=== PATIENT | male | born 1945 | race Caucasian/White ===

== ENCOUNTER 2019-04-24 13:48 | Emergency (ER) | payer BC, MEDICARE ==
[2019-04-24] MEDS ORDERED: Sodium Chloride 0.9% 10 ML Syringe FLUSH PRN (13:52)
[2019-04-24] MEDS ORDERED: Furosemide 40 MG/4 ML VIAL IVPUSH ONE (13:53)
--- NOTE | 2019-04-24 14:50 | CR ---
Chest: Portable view of the chest was obtained. Comparison: Prior chest x-ray of 06/30/18. Heart size at the upper limits of normal. Lungs are clear with no acute parenchymal change. Previous sternotomy is noted. Bony structures are grossly intact. Impression: 1. Nothing acute is appreciated on portable chest x-ray. Diagnostic code #2
--- NOTE | 2019-04-24 16:32 | EDM.PDOC ---
ED HPI GENERAL MEDICAL PROBLEM - General Chief Complaint: Respiratory Problem Stated Complaint: [facility] Time Seen by Provider: 04/24/19 13:52 Source of Information: Reports: Patient, EMS History Limitations: Reports: No Limitations - History of Present Illness INITIAL COMMENTS - FREE TEXT/NARRATIVE: The patient presents by [facility] for respiratory distress. He says this started about 1 hour before arrival. He took 2 hits of his inhaler before EMS arrived. He was tachycardic and diaphoretic. He had no chest pain. He has a history of CHF. He was sent to [facility] in June of this year. He did not have an IL according to the patient. Today he has no abdominal pain , nausea or vomiting. He has no swelling in his legs. Onset: Sudden Duration: Hour(s): (1) Severity: Moderate Improves with: Reports: None Worsens with: Reports: None Associated Symptoms: Reports: Shortness of Breath. Denies: Chest Pain, Cough, Fever/Chills, Headaches, Nausea/Vomiting - Related Data Allergies Allergy/AdvReac Type Severity Reaction Status Date / Time Penicillins Allergy Nausea and Verified 04/24/19 13:58 Vomiting Home Meds: Home Meds Canagliflozin/Metformin HCl [Invokamet 150-1,000 mg Tablet] 2 tab PO DAILY 06/30 [History] Clopidogrel Bisulfate [Clopidogrel] 75 mg PO DAILY 06/30/18 [History] Colesevelam HCl 625 mg PO BID 06/30/18 [History] Exenatide Microspheres [Bydureon Pen] 2 mg SQ ASDIRECTED 06/30/18 [History] Metoprolol Tartrate 25 mg PO BID 06/30/18 [History] Ranitidine HCl [Ranitidine] 150 mg PO DAILY 06/30/18 [History] Rosuvastatin Calcium 40 mg PO DAILY 06/30/18 [History] Telmisartan 40 mg PO DAILY 06/30/18 [History] Telmisartan [Micardis] 40 mg PO DAILY 06/30/18 [History] amLODIPine [Norvasc] 2.5 mg PO DAILY 06/30/18 [History] predniSONE [Prednisone] 2 mg PO ASDIRECTED 06/30/18 [History] Furosemide [Lasix] 20 mg PO DAILY #7 tab 04/24/19 [Rx] Past Medical History HEENT History: Reports: Impaired Vision Other HEENT History: wears reading glasses Cardiovascular History: Reports: CAD, High Cholesterol, Hypertension, [place] Respiratory History: Reports: Sleep Apnea Gastrointestinal History: Reports: GERD Other Gastrointestinal History: hernia Musculoskeletal History: Reports: Arthritis Endocrine/Metabolic History: Reports: Obesity/BMI 30+ - Infectious Disease History Infectious Disease History: Reports: Chicken Pox, Measles, Mumps - Past Surgical History HEENT Surgical History: Reports: Oral Surgery, Tonsillectomy Cardiovascular Surgical History: Reports: Coronary Artery Bypass Musculoskeletal Surgical History: Reports: Arthroscopic Knee, Shoulder Surgery Social & Family History - Family History Family Medical History: Noncontributory - Tobacco Use Smoking Status *Q: Never Smoker Second Hand Smoke Exposure: No - Caffeine Use Caffeine Use: Reports: None Other Caffeine Use: rarely - Recreational Drug Use Recreational Drug Use: No - Living Situation & Occupation Living situation: Reports: , with Spouse Occupation: Retired ED ROS GENERAL - Review of Systems Review Of Systems: See Below Constitutional: Reports: No Symptoms HEENT: Reports: No Symptoms Respiratory: Reports: Shortness of Breath Cardiovascular: Reports: No Symptoms Endocrine: Reports: No Symptoms GI/Abdominal: Reports: No Symptoms : Reports: No Symptoms Musculoskeletal: Reports: No Symptoms Skin: Reports: No Symptoms Neurological: Reports: No Symptoms ED EXAM, GENERAL - Physical Exam Exam: See Below Exam Limited By: No Limitations General Appearance: Alert, No Apparent Distress Ears: Normal External Exam Nose: Normal Inspection Head: Atraumatic, Normocephalic Neck: Normal Inspection, Supple, Non-Tender Respiratory/Chest: Respiratory Distress (Mild), Rales Cardiovascular: Regular Rate, Rhythm, No Edema, No Murmur GI/Abdominal: Soft, Non-Tender, No Organomegaly, No Mass Back Exam: Normal Inspection Extremities: Normal Inspection EKG INTERPRETATION EKG Date: 04/24/19 Time: 13:56 Rhythm: NSR Rate (Beats/Min): 83 [place]: Normal P-Wave: Present QRS: RBBB ST-T: Normal QT: Normal EKG Interpretation Comments: PVCs and no changes from prior EKG Course - Vital Signs Last Recorded V/S: Last Vital Signs Temp 96.9 F 04/24/19 13:52 Pulse 86 04/24/19 13:52 Resp 25 H 04/24/19 13:52 BP 110/98 H 04/24/19 13:52 Pulse Ox 100 04/24/19 13:53 - Orders/Labs/Meds Orders: Active Orders 24 hr Category Date Time Status BIPAP Adult [RT BiPAP/CPAP] [RC] ASDIRECTED Care 04/24/19 13:53 Active Cardiac Monitoring [RC] . DIRECTED Care 04/24/19 13:52 Active EKG Documentation Completion [RC] STAT Care 04/24/19 13:52 Active Influenza Vaccine Charge [RC] .DISCHARGE Care 04/24/19 14:06 Active Oxygen Therapy [RC] PRN Care 04/24/19 13:52 Active Peripheral IV Care [RC] . DIRECTED Care 04/24/19 13:52 Active Sodium Chloride 0.9% [Saline Flush] Med 04/24/19 13:52 Active 10 ml FLUSH ASDIRECTED PRN Peripheral IV Insertion Adult [OM.PC] Stat Oth 04/24/19 13:52 Ordered Medication Orders Sodium Chloride (Saline Flush) 10 ml FLUSH ASDIRECTED PRN PRN Reason: Keep Vein Open Last Admin: 04/24/19 14:26 Dose: 10 ml Labs: Laboratory Tests 04/24/19 04/24/19 04/24/19 Range/Units 14:00 14:00 14:00 WBC 7.24 (4.23-9.07) K/mm3 RBC 4.68 (4.63-6.08) M/mm3 Hgb 13.5 L (13.7-17.5) gm/dl Hct 40.1 (40.1-51.0) % MCV 85.7 (79.0-92.2) fl MCH 28.8 (25.7-32.2) pg MCHC 33.7 (32.2-35.5) g/dl RDW Std Deviation 53.3 H (35.1-43.9) fL Plt Count 104 L (163-337) K/mm3 MPV TNP Neut % (Auto) 78.4 H (34.0-67.9) % Lymph % (Auto) 13.8 L (21.8-53.1) % [place] % (Auto) 6.4 (5.3-12.2) % Eos % (Auto) 1.0 (0.8-7.0) Baso % (Auto) 0.1 (0.1-1.2) % Neut # (Auto) 5.68 H (1.78-5.38) K/mm3 Lymph # (Auto) 1.00 L (1.32-3.57) K/mm3 [place] # (Auto) 0.46 (0.30-0.82) K/mm3 Eos # (Auto) 0.07 (0.04-0.54) K/mm3 Baso # (Auto) 0.01 (0.01-0.08) K/mm3 Manual Slide Review Abnormal smear Sodium 140 (136-145) mEq/L Potassium 3.9 (3.5-5.1) mEq/L Chloride 106 (98-107) mEq/L Carbon Dioxide 22 (21-32) mEq/L Anion Gap 15.9 H (5-15) BUN 17 (7-18) mg/dL Creatinine 1.3 (0.7-1.3) mg/dL Est Cr Clr Drug Dosing 55.49 mL/min Estimated GFR (MDRD) 54 (>60) mL/min BUN/Creatinine Ratio 13.1 L (14-18) Glucose 137 H (83-115) mg/dL Calcium 8.6 (8.5-10.1) mg/dL Total Bilirubin 1.0 (0.2-1.0) mg/dL AST 15 (15-37) U/L ALT 12 L (16-63) U/L Alkaline Phosphatase 68 (46-116) U/L Troponin I 0.130 H* (0.00-0.056) ng/mL NT-Pro-B Natriuret Pep 1092 H (0-450) pg/mL Total Protein 7.0 (6.4-8.2) g/dl Albumin 3.6 (3.4-5.0) g/dl Globulin 3.4 gm/dL Albumin/Globulin Ratio 1.1 (1-2) Meds: Medications Generic Name Dose Route Start Last Admin Trade Name Freq PRN Reason Stop Dose Admin Sodium Chloride 10 ml 04/24/19 13:52 04/24/19 14:26 Saline Flush FLUSH 10 ml ASDIRECTED PRN Administration Keep Vein Open Discontinued Medications Generic Name Dose Route Start Last Admin Trade Name Freq PRN Reason Stop Dose Admin Furosemide 80 mg 04/24/19 13:53 04/24/19 14:24 Lasix IVPUSH 04/24/19 13:54 80 mg NOW ONE Administration Influenza Virus Vaccine 1 each 04/24/19 14:06 Pharmacy To Dose - Influenza Vaccine IM 04/24/19 14:07 ONETIME ONE Influenza Virus Vaccine 180 mcg 04/24/19 14:15 04/24/19 16:02 Fluzone High-Dose 2019-20 Syringe IM 04/24/19 14:16 Not Given .ONCE ONE - Re-Assessments/Exams Free Text/Narrative Re-Assessment/Exam: 04/24/19 16:34 I ordered oxygen, BiPAP, lasix 80mg IV, labs, CXR and EKG. His EKG shows a NSR and RBBB with no change from prior. His CBC looks good. His troponin was elevated at 0.130. In the clinic it has been as high as 0.4 and 0.5. His CXR shows nothing acute. He is doing much better now. He does not want to stay. I will get him back on some lasix for a week and have him follow up with Dr Kahn. Departure - Departure Time of Disposition: 16:40 Disposition: Home, Self-Care 01 Condition: Good Clinical Impression: Congestive heart failure Qualifiers: Heart failure type: other Qualified Code(s): I50.9 - Heart failure, unspecified - Discharge Information *PRESCRIPTION DRUG MONITORING PROGRAM REVIEWED*: No *COPY OF PRESCRIPTION DRUG MONITORING REPORT IN PATIENT RUBEN: No Prescriptions: Furosemide [Lasix] 20 mg PO DAILY #7 tab Referrals: Jay Kahn MD [Primary Care Provider] - 1 Week Additional Instructions: Take the lasix daily for 1 week. Take your other medication as prescribed. Follow up with Dr Kahn within a week. Please return if you are worse. - My Orders Last 24 Hours: My Active Orders 04/24/19 13:52 Cardiac Monitoring [RC] . DIRECTED EKG Documentation Completion [RC] STAT Oxygen Therapy [RC] PRN Peripheral IV Care [RC] . DIRECTED Sodium Chloride 0.9% [Saline Flush] 10 ml FLUSH ASDIRECTED PRN Peripheral IV Insertion Adult [OM.PC] Stat 04/24/19 13:53 BIPAP Adult [RT BiPAP/CPAP] [RC] ASDIRECTED 04/24/19 14:06 Influenza Vaccine Charge [RC] .DISCHARGE - Assessment/Plan Last 24 Hours: My Active Orders 04/24/19 13:52 Cardiac Monitoring [RC] . DIRECTED EKG Documentation Completion [RC] STAT Oxygen Therapy [RC] PRN Peripheral IV Care [RC] . DIRECTED Sodium Chloride 0.9% [Saline Flush] 10 ml FLUSH ASDIRECTED PRN Peripheral IV Insertion Adult [OM.PC] Stat 04/24/19 13:53 BIPAP Adult [RT BiPAP/CPAP] [RC] ASDIRECTED 04/24/19 14:06 Influenza Vaccine Charge [RC] .DISCHARGE
== END 2019-04-24 17:00 | disposition home or self-care (01) ==
LOC: JD.ED 13:48
DX: I11.0 Hypertensive heart disease with heart failure (principal); I50.9 Heart failure, unspecified; I25.10 Atherosclerotic heart disease of native coronary artery without angina pectoris; E78.00 Pure hypercholesterolemia, unspecified; I25.2 Old myocardial infarction; E66.9 Obesity, unspecified; Z68.34 Body mass index [BMI] 34.0-34.9, adult; Z88.0 Allergy status to penicillin; Z95.1 Presence of aortocoronary bypass graft; Z79.02 Long term (current) use of antithrombotics/antiplatelets; Z79.899 Other long term (current) drug therapy
CPT/HCPCS: 36415; 71045; 80053; 83880; 84484; 85025; 93005; 96374; 99285; J1940; 93010; 99284

== ENCOUNTER 2020-03-24 02:57 | Emergency (ER) | payer MEDICARE, OTHER ==
--- NOTE | 2020-03-24 03:27 | EDM.PDOC ---
ED HPI GENERAL MEDICAL PROBLEM - General Chief Complaint: General Stated Complaint: [facility] Time Seen by Provider: 03/24/20 03:07 Source of Information: Reports: Patient History Limitations: Reports: No Limitations - History of Present Illness INITIAL COMMENTS - FREE TEXT/NARRATIVE: Mr. Katz is a very pleasant 75-year-old gentleman with a past medical history significant for coronary artery disease, status post an NJ in 2002, with a 5 vessel CABG at that time, and obstructive sleep apnea, ordinarily on nightly CPAP, who is now brought to the ED by EMS after he developed diaphoresis, weakness, nausea, and dyspnea around 01:30. He states that he was watching television at the time, but he likely fell asleep in front of the television and was startled awake. He denies associated chest pain or palpitations. The patient states that he had a similar episode about 1 to 2 weeks ago. He subsequently saw his PCP, but does not recall what tests or treatments, if any, were given. Here in the ED, the patient's initial BP is found to be depressed at 101/46, otherwise, he is hemodynamically stable, afebrile, saturating 92% on room air. Other than this morning's symptoms, the patient denies having a recent fever, chills, sore throat, ear pain, nasal or sinus congestion, cough, chest pain, palpitations, vomiting, constipation, diarrhea, abdominal pain, urinary symptoms, recent weight gain or weight loss, recent bloody bowel movements or black bowel movements, recent joint aches, headaches, or rashes. The patient's PCP is Dr. Jay Cuenca. - Related Data Allergies Allergy/AdvReac Type Severity Reaction Status Date / Time Penicillins AdvReac Nausea and Verified 03/24/20 03:02 Vomiting Home Meds: Home Meds Canagliflozin/Metformin HCl [Invokamet 150-1,000 mg Tablet] 2 tab PO DAILY 06/30/18 [History] Clopidogrel Bisulfate [Clopidogrel] 75 mg PO DAILY 06/30/18 [History] Colesevelam HCl 625 mg PO BID 06/30/18 [History] Exenatide Microspheres [Bydureon Pen] 2 mg SQ ASDIRECTED 06/30/18 [History] Metoprolol Tartrate 25 mg PO BID 06/30/18 [History] Ranitidine HCl [Ranitidine] 150 mg PO DAILY 06/30/18 [History] Rosuvastatin Calcium 40 mg PO DAILY 06/30/18 [History] Telmisartan 40 mg PO DAILY 06/30/18 [History] Telmisartan [Micardis] 40 mg PO DAILY 06/30/18 [History] amLODIPine [Norvasc] 2.5 mg PO DAILY 06/30/18 [History] predniSONE [Prednisone] 2 mg PO ASDIRECTED 06/30/18 [History] Furosemide [Lasix] 20 mg PO DAILY #7 tab 04/24/19 [Rx] Past Medical History HEENT History: Reports: Impaired Vision (wears glasses) Cardiovascular History: Reports: CAD, High Cholesterol, Hypertension, [place] (2002) Respiratory History: Reports: Sleep Apnea (nightly CPAP) Gastrointestinal History: Reports: GERD Musculoskeletal History: Reports: Arthritis Endocrine/Metabolic History: Reports: Obesity/BMI 30+ - Infectious Disease History Infectious Disease History: Reports: Chicken Pox, Measles, Mumps - Past Surgical History HEENT Surgical History: Reports: Oral Surgery (wisdom teeth extraction), Tonsillectomy Cardiovascular Surgical History: Reports: AICD (December 2019), Coronary Artery Bypass (x 5 vessel, 2002) Musculoskeletal Surgical History: Reports: Arthroscopic Knee (left), Shoulder Surgery (right, open) Social & Family History - Family History Family Medical History: Noncontributory - Tobacco Use Smoking Status *Q: Never Smoker - Caffeine Use Caffeine Use: Reports: None Other Caffeine Use: rarely - Alcohol Use Alcohol Use History: Yes Alcohol Use Frequency: Daily (1 per day) - Recreational Drug Use Recreational Drug Use: No - Living Situation & Occupation Living situation: Reports: , with Spouse Occupation: Retired ED ROS GENERAL - Review of Systems Review Of Systems: Comprehensive ROS is negative, except as noted in HPI. ED EXAM, GENERAL - Physical Exam Exam: See Below Exam Limited By: No Limitations General Appearance: Alert, WD/WN, No Apparent Distress Eye Exam: Bilateral Eye: EOMI, Normal Inspection Ears: Normal External Exam, Hearing Grossly Normal Nose: Normal Inspection Throat/Mouth: Normal Inspection, Normal Voice, No Airway Compromise, Other (Wearing a surgical mask) Head: Atraumatic, Normocephalic Neck: Normal Inspection, Full Range of Motion Respiratory/Chest: No Respiratory Distress, No Accessory Muscle Use, Decreased Breath Sounds. No: Crackles, Rhonchi, Wheezing, Stridor, Prolonged Expiration Cardiovascular: Normal Peripheral Pulses, Regular Rate, Rhythm, No Gallop, No JVD, No Murmur, No Rub, Other (Distant heart sounds) Peripheral Pulses: 1+: Radial (L), Radial (R) GI/Abdominal: Normal Bowel Sounds, Soft, Non-Tender, No Organomegaly, No Distention, No Abnormal Bruit, No Mass (Male) Exam: Deferred Rectal (Males) Exam: Deferred Back Exam: Normal Inspection, Full Range of Motion, NT Extremities: Normal Range of Motion, Other (Bilateral leg hyperpigmentation consistent with chronic venous stasis changes, however, no significant edema at this time) Neurological: Alert, Oriented, Normal Cognition, No Motor/Sensory Deficits Psychiatric: Normal Affect Skin Exam: Warm, Dry, Intact, Normal Color, No Rash EKG INTERPRETATION EKG Date: 03/24/20 Time: 03:01 Rhythm: Other (A-V paced with 2 PVCs) Rate (Beats/Min): 89 Comparison: Change From Previous EKG (Was in [facility] on 04/24/2019) Course - Vital Signs Last Recorded V/S: Last Vital Signs Temp 36.2 C 03/24/20 02:58 Pulse 81 03/24/20 02:58 Resp 18 03/24/20 02:58 BP 101/46 L 03/24/20 02:58 Pulse Ox 92 L 03/24/20 02:58 Orthostatic Blood Pressure [ 94/63 Standing] Orthostatic Blood Pressure [ 97/63 Sitting] Orthostatic Blood Pressure [ 92/68 Supine] - Orders/Labs/Meds Orders: Active Orders 24 hr Category Date Time Status EKG 12 Lead [EKG Documentation Completion] [RC] STAT Care 03/24/20 03:06 Active Orthostatic Vital Signs [RC] STAT Care 03/24/20 03:17 Active CORONAVIRUS COVID-19 PCR PHL Stat Lab 03/24/20 03:40 Received Heparin Sodium/D5W [Heparin 25,000 Units in D5W 500 ML] Med 03/24/20 06:15 Active 25,000 units in 500 ml IV TITRATE Simvastatin [Zocor] Med 03/24/20 06:56 Active 40 mg PO BEDTIME Medication Orders Heparin Sodium/Dextrose (Heparin 25,000 Units In D5w 500 Ml) 25,000 units in 500 mls @ 20 mls/hr IV TITRATE CAROL; Protocol Last Admin: 03/24/20 06:38 Dose: 1,000 units/hr, 20 mls/hr Documented by: BOAZ Cosigned by: MAGGI Simvastatin (Zocor) 40 mg PO BEDTIME CAROL Last Admin: 03/24/20 06:57 Dose: 40 mg Documented by: BOAZ Labs: Laboratory Tests 03/24/20 03/24/20 03/24/20 Range/Units 03:05 03:05 03:05 WBC 8.48 (4.23-9.07) K/mm3 RBC 4.67 (4.63-6.08) M/mm3 Hgb 13.3 L (13.7-17.5) gm/dl Hct 40.5 (40.1-51.0) % MCV 86.7 (79.0-92.2) fl MCH 28.5 (25.7-32.2) pg MCHC 32.8 (32.2-35.5) g/dl RDW Std Deviation 55.9 H (35.1-43.9) fL Plt Count 119 L (163-337) K/mm3 MPV Not Reportable Neutrophils % (Manual) 67 H (40-60) % Band Neutrophils % 0 (0-10) % Lymphocytes % (Manual) 20 (20-40) % Atypical Lymphs % 0 % Monocytes % (Manual) 11 H (2-10) % Eosinophils % (Manual) 2 (0.8-7.0) % Basophils % (Manual) 0 L (0.2-1.2) Platelet Estimate Decreased Plt Morphology Comment Normal Hypochromasia 1+ slight Poikilocytosis 2+ moderate Anisocytosis 2+ moderate Ovalocytes 2+ moderate Acanthocytes (Spur) 1+ slight RBC Morph Comment Abnormal D-Dimer, Quantitative 1.52 H (0.19-0.50) mg/L Sodium 139 (136-145) mEq/L Potassium 3.4 L (3.5-5.1) mEq/L Chloride 102 (98-107) mEq/L Carbon Dioxide 27 (21-32) mEq/L Anion Gap 13.4 (5-15) BUN 19 H (7-18) mg/dL Creatinine 1.5 H (0.7-1.3) mg/dL Est Cr Clr Drug Dosing 48.71 mL/min Estimated GFR (MDRD) 46 (>60) mL/min BUN/Creatinine Ratio 12.7 L (14-18) Glucose 164 H (83-115) mg/dL Calcium 9.0 (8.5-10.1) mg/dL Magnesium 1.9 (1.8-2.4) mg/dl Total Bilirubin 0.6 (0.2-1.0) mg/dL AST 18 (15-37) U/L ALT 18 (16-63) U/L Alkaline Phosphatase 75 (46-116) U/L Troponin I 0.165 H* (0.00-0.056) ng/mL NT-Pro-B Natriuret Pep (0-450) pg/mL Total Protein 7.3 (6.4-8.2) g/dl Albumin 3.7 (3.4-5.0) g/dl Globulin 3.6 gm/dL Albumin/Globulin Ratio 1.0 (1-2) Urine Color (Yellow) Urine Appearance (Clear) Urine pH (5.0-8.0) Ur Specific [place] (1.005-1.030) Urine Protein (Negative) Urine Glucose (UA) (Negative) Urine Ketones (Negative) Urine Occult Blood (Negative) Urine Nitrite (Negative) Urine Bilirubin (Negative) Urine Urobilinogen (0.2-1.0) Ur Leukocyte Esterase (Negative) U Hyaline Cast (Auto) (0-5) /lpf Urine RBC (0-5) /hpf Urine WBC (0-5) /hpf Ur Squamous Epith Cells (0-5) /hpf Amorphous Sediment (NOT SEEN) /hpf Urine Bacteria (FEW) /hpf Urine Mucus (FEW) /hpf 03/24/20 03/24/20 03/24/20 Range/Units 03:05 05:05 05:38 WBC (4.23-9.07) K/mm3 RBC (4.63-6.08) M/mm3 Hgb (13.7-17.5) gm/dl Hct (40.1-51.0) % MCV (79.0-92.2) fl MCH (25.7-32.2) pg MCHC (32.2-35.5) g/dl RDW Std Deviation (35.1-43.9) fL Plt Count (163-337) K/mm3 MPV Neutrophils % (Manual) (40-60) % Band Neutrophils % (0-10) % Lymphocytes % (Manual) (20-40) % Atypical Lymphs % % Monocytes % (Manual) (2-10) % Eosinophils % (Manual) (0.8-7.0) % Basophils % (Manual) (0.2-1.2) Platelet Estimate Plt Morphology Comment Hypochromasia Poikilocytosis Anisocytosis Ovalocytes Acanthocytes (Spur) RBC Morph Comment D-Dimer, Quantitative (0.19-0.50) mg/L Sodium (136-145) mEq/L Potassium (3.5-5.1) mEq/L Chloride (98-107) mEq/L Carbon Dioxide (21-32) mEq/L Anion Gap (5-15) BUN (7-18) mg/dL Creatinine (0.7-1.3) mg/dL Est Cr Clr Drug Dosing mL/min Estimated GFR (MDRD) (>60) mL/min BUN/Creatinine Ratio (14-18) Glucose (83-115) mg/dL Calcium (8.5-10.1) mg/dL Magnesium (1.8-2.4) mg/dl Total Bilirubin (0.2-1.0) mg/dL AST (15-37) U/L ALT (16-63) U/L Alkaline Phosphatase (46-116) U/L Troponin I 0.617 H* (0.00-0.056) ng/mL NT-Pro-B Natriuret Pep 949 H (0-450) pg/mL Total Protein (6.4-8.2) g/dl Albumin (3.4-5.0) g/dl Globulin gm/dL Albumin/Globulin Ratio (1-2) Urine Color Yellow (Yellow) Urine Appearance Clear (Clear) Urine pH 5.5 (5.0-8.0) Ur Specific [place] > or = 1.030 (1.005-1.030) Urine Protein 2+ H (Negative) Urine Glucose (UA) 2+ H (Negative) Urine Ketones Negative (Negative) Urine Occult Blood Negative (Negative) Urine Nitrite Negative (Negative) Urine Bilirubin Negative (Negative) Urine Urobilinogen 0.2 (0.2-1.0) Ur Leukocyte Esterase Negative (Negative) U Hyaline Cast (Auto) 0-5 (0-5) /lpf Urine RBC Not seen (0-5) /hpf Urine WBC 0-5 (0-5) /hpf Ur Squamous Epith Cells 0-5 (0-5) /hpf Amorphous Sediment Few H (NOT SEEN) /hpf Urine Bacteria Rare (FEW) /hpf Urine Mucus Not seen (FEW) /hpf Meds: Medications Generic Name Dose Route Start Last Admin Trade Name Freq PRN Reason Stop Dose Admin Heparin Sodium/Dextrose 25,000 units in 500 mls @ 20 mls/hr 03/24/20 06:15 03/24/20 06:38 Heparin 25,000 Units In D5w 500 Ml IV 1,000 units/hr TITRATE CAROL 20 mls/hr Administration Protocol 1,000 UNITS/HR Simvastatin 40 mg 03/24/20 06:56 03/24/20 06:57 Zocor PO 40 mg BEDTIME CAROL Administration Discontinued Medications Generic Name Dose Route Start Last Admin Trade Name Freq PRN Reason Stop Dose Admin Aspirin 324 mg 03/24/20 04:18 03/24/20 04:24 Aspirin PO 03/24/20 04:19 324 mg ONETIME STA Administration Heparin Sodium (Porcine) 4,000 units 03/24/20 06:15 03/24/20 06:37 Heparin Sodium IVPUSH 03/24/20 06:16 4,000 units .BOLUS STA Administration Simvastatin 40 mg 03/24/20 21:00 Zocor PO BEDTIME CAROL Simvastatin 40 mg 03/24/20 06:44 03/24/20 06:57 Zocor PO 03/24/20 06:45 Not Given ONETIME ONE - Re-Assessments/Exams Free Text/Narrative Re-Assessment/Exam: 03/24/20 03:19 As above, the patient developed diaphoresis, weakness, nausea, and some dyspnea around 01:30 this morning, when he was woken from sleep while watching television. He states that he may have been startled awake. No associated chest pain or palpitations. He states that he had a similar symptoms about 1 to 2 weeks ago, saw Dr. Cuenca, but does not recall what tests or treatments were given, if any. Here in the ED, the patient is found to be mildly hypotensive, afebrile, saturating 92% on room air. His physical exam findings distant heart and lung sounds, and a poor pulse, but his extremities are warm to palpation with good color. The patient is in no distress whatsoever. An ECG, obtained at triage, demonstrates AV pacing. I have ordered a work-up that includes orthostatics, blood work, a urinalysis, a chest x-ray, and a swab for the SARS-CoV-2 virus. 03/24/20 03:27 Notified by Rupa CABRALES that the patient is not allowing a nasal swab to test for the SARS-CoV-2 virus, telling her that he does not COVID-19. Both the rapid Abbot test and 1 hour Cepheid test are collected by nasal swab, therefore we will send a ND Raad test, which is collected oropharyngeally. 03/24/20 03:45 The patient is not orthostatic. 03/24/20 04:11 Two-view chest radiograph reviewed. The cardiac silhouette is at the upper limits of normal. No pulmonary vascular congestion. No pleural effusions. No focal infiltrate. No pneumothorax. There is hyperinflation with bilateral diaphragmatic flattening, consistent with COPD. A left-sided 2 chamber ICD is noted. Wires noted. Formal read per the Radiologist pending. 03/24/20 04:19 The patient's CMP is remarkable for a potassium slightly depressed at 3.4, and a BUN/Cr elevated at 19/1.5, with a blood glucose elevated at 164, and the remainder of his CMP being unremarkable. His magnesium level is within normal limits at 1.9. His troponin is elevated at 0.165. His BNP is mildly elevated at 949. His D-dimer is elevated at 1.52. The patient's CBC has not yet resulted. A urine sample has not yet been collected. Reviewing prior labs, I see that the patient's BUN/Cr were 17/1.3 on 04/24/2019. His troponin was 0.130 on 04/24/2019, 0.348 on 06/30/2018, 0.43 on 06/13/2018, and 0.542 on 06/12/2018. His D-dimer was 0.90 on 06/30/2018 and 0.93 on 06/12/2018. This indicates that today's troponin is mildly higher than on 04/24/2019, when his renal function was not as impaired. This indicates possible recent cardiac injury. I have therefore ordered 324 mg of chewable aspirin, and will repeat a troponin at 05:30, 4 hours after the onset of his symptoms, to see if it is trending. 03/24/20 05:30 The patient's urinalysis is unremarkable. 03/24/20 06:17 The patient's repeat troponin has returned significantly elevated at 0.617. This indicates an acute cardiac injury. I have therefore ordered a heparin bolus + drip. 03/24/20 06:19 The above was discussed with the patient. I recommended transfer to [facility]. He prefers [facility]. 03/24/20 06:38 Case discussed with Demetrice at [facility] at 06:19. Case then discussed with Dr. Pearl, Veterinarian Assistant at [facility], at 06:30. He requested that we transport the patient to the ED, where he will then see the patient. He requested that I add 40 mg oral simvastatin to the patient's current regimen. Case then discussed with Dr. Ramsay, Emergency Physician at [facility], at 06:35. He accepted the patient for transfer to their ED. the patient will be transported by ground ambulance. 03/24/20 06:49 I have pushed the chest x-ray images to [facility]. Departure - Departure Time of Disposition: 06:39 Disposition: DC/Tfer to Acute Hospital 02 Condition: Fair Clinical Impression: Acute [place], Renal insufficiency, Elevated d-dimer - Discharge Information *PRESCRIPTION DRUG MONITORING PROGRAM REVIEWED*: Not Applicable *COPY OF PRESCRIPTION DRUG MONITORING REPORT IN PATIENT RUBEN: Not Applicable Referrals: Jay Sexton MD [Primary Care Provider] - Forms: ED Department Discharge Sepsis Event Note (ED) - Evaluation Sepsis Screening Result: No Definite Risk - Focused Exam Vital Signs: Vital Signs Temp Pulse Resp BP Pulse Ox 03/24/20 02:58 36.2 C 81 18 101/46 L 92 L - My Orders Last 24 Hours: My Active Orders 03/24/20 03:06 EKG 12 Lead [EKG Documentation Completion] [RC] STAT 03/24/20 03:17 Orthostatic Vital Signs [RC] STAT 03/24/20 03:40 CORONAVIRUS COVID-19 PCR PHL Stat 03/24/20 06:15 Heparin Sodium/D5W [Heparin 25,000 Units in D5W 500 ML] 25,000 units in 500 ml IV TITRATE 03/24/20 06:56 Simvastatin [Zocor] 40 mg PO BEDTIME - Assessment/Plan Last 24 Hours: My Active Orders 03/24/20 03:06 EKG 12 Lead [EKG Documentation Completion] [RC] STAT 03/24/20 03:17 Orthostatic Vital Signs [RC] STAT 03/24/20 03:40 CORONAVIRUS COVID-19 PCR PHL Stat 03/24/20 06:15 Heparin Sodium/D5W [Heparin 25,000 Units in D5W 500 ML] 25,000 units in 500 ml IV TITRATE 03/24/20 06:56 Simvastatin [Zocor] 40 mg PO BEDTIME
[2020-03-24] MEDS ORDERED: Aspirin 81 MG Tab.Chew PO STA (04:18)
[2020-03-24] MEDS ORDERED: Heparin Sodium 5,000 Units/ML Vial IVPUSH STA (06:15)
[2020-03-24] MEDS ORDERED: Heparin Sodium/D5W 25,000 UNITS/500 ML BAG IV SCH (06:15)
[2020-03-24] MEDS ORDERED: Simvastatin 10 MG Tab PO ONE (06:44)
[2020-03-24] MEDS ORDERED: Simvastatin 40 MG Tab PO SCH ×2 (06:56→21:00)
--- NOTE | 2020-03-24 06:56 | CR ---
Chest: 2 views of the chest were obtained. Comparison: Prior chest x-ray of 06/30/18 and 04/24/19. Heart size and mediastinum are within normal limits. Lungs show no acute parenchymal change. Previous sternotomy is noted. AICD is present. Epicardial wire is also noted. Bony structures appear within normal limits for the patient's age. Impression: 1. Findings as noted above. 2. Nothing acute is appreciated. Diagnostic code #2 This report was dictated in MDT
== END 2020-03-24 07:21 ==
LOC: JD.ED 02:57
DX: I21.9 Acute myocardial infarction, unspecified (principal); N28.9 Disorder of kidney and ureter, unspecified; R79.1 Abnormal coagulation profile; I25.10 Atherosclerotic heart disease of native coronary artery without angina pectoris; E78.00 Pure hypercholesterolemia, unspecified; I10 Essential (primary) hypertension; K21.9 Gastro-esophageal reflux disease without esophagitis; E66.9 Obesity, unspecified; Z68.32 Body mass index [BMI] 32.0-32.9, adult; Z95.1 Presence of aortocoronary bypass graft; Z88.0 Allergy status to penicillin; Z79.02 Long term (current) use of antithrombotics/antiplatelets; Z79.899 Other long term (current) drug therapy; Z20.828 Contact with and (suspected) exposure to other viral communicable diseases
CPT/HCPCS: 36415; 71046; 80053; 81001; 83735; 83880; 84484; 85007; 85027; 85379; 93005; 96365; 99285; A9270; J1644; U0002; 93010

== ENCOUNTER 2020-11-12 00:44 | Emergency (ER) | payer MEDICARE, OTHER ==
[2020-11-12] MEDS ORDERED: Sodium Chloride 0.9% 10 ML Syringe FLUSH PRN (01:14)
[2020-11-12] MEDS ORDERED: Nitroglycerin 0.4 MG Tab.SL SL ONE (01:22)
--- NOTE | 2020-11-12 01:25 | EDM.PDOC ---
ED HPI GENERAL MEDICAL PROBLEM - General Chief Complaint: General Stated Complaint: [facility] Time Seen by Provider: 11/12/20 00:49 Source of Information: Reports: Patient, EMS History Limitations: Reports: Other (Limited/difficult historian) - History of Present Illness INITIAL COMMENTS - FREE TEXT/NARRATIVE: EMS was called to the patient's residence because he was unable to get up States that he tripped 1 week ago while moving something into his shed with a trailer Sustained injury to the right knee Since then he has had difficulty getting up to his feet, and was unable to do so tonight While trying to get up tonight, he developed chest pain Chest pain was initially rated 5/10, currently rated 3/10 Since arrival to ED, has also developed some nausea Complains of feeling cold for the past 3 days Endorses some abdominal distention States he last voided earlier "today", though uncertain when EMS reports patient was incontinent of urine at scene Patient's arrived subsequently at the bedside She states that he has been eating and drinking okay, he had a hamburger for lunch and has been drinking Sprite She reports that he was seen on 11/08/2020 at [facility] in [place] and had radiographs of the right knee which were evidently unremarkable He apparently became unresponsive for 5-10 seconds while trying to get up from the chair this evening Incontinence of urine occurred during that incident She wonders whether his defibrillator may have discharged, as he apparently awoke suddenly 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 Right Knee Pain Score (Numeric/FACES): 10 - Related Data Allergies Allergy/AdvReac Type Severity Reaction Status Date / Time Penicillins AdvReac Severe Nausea and Verified 11/12/20 00:56 Vomiting Home Meds: Home Meds Clopidogrel Bisulfate [Clopidogrel] 75 mg PO DAILY 06/30/18 [History] Rosuvastatin Calcium 40 mg PO DAILY 06/30/18 [History] predniSONE [Prednisone] 1 mg PO ASDIRECTED 06/30/18 [History] Aspirin 81 mg PO DAILY 11/12/20 [History] Canagliflozin/Metformin HCl [Invokamet 150-500 mg Tablet] 1 each PO DAILY 11/12/20 [History] [place] 450 mg PO DAILY 11/12/20 [History] Cholecalciferol (Vitamin D3) [Vitamin D3] 125 mcg PO DAILY 11/12/20 [History] Cyclobenzaprine [Flexeril] 10 mg PO BEDTIME 11/12/20 [History] Exenatide Microspheres [Bydureon Bcise] 2 mg SQ WEEKLY 11/12/20 [History] Furosemide [Lasix] 20 mg PO ASDIRECTED 11/12/20 [History] Hydrocodone/Acetaminophen [Hydrocodone-Acetamin 5-325 mg] 2 tab PO DAILY PRN 11/12/20 [History] Metoprolol Succinate 50 mg PO DAILY 11/12/20 [History] Multivitamin 1 each PO DAILY 11/12/20 [History] Sacubitril/Valsartan [Entresto 49 mg-51 mg Tablet] 1 each PO BID 11/12/20 [History] Past Medical History HEENT History: Reports: Impaired Vision Other HEENT History: wears reading glasses Cardiovascular History: Reports: CAD, Heart Failure, High Cholesterol, Hypertension, [place] Respiratory History: Reports: Sleep Apnea Gastrointestinal History: Reports: GERD Other Gastrointestinal History: hernia Musculoskeletal History: Reports: Arthritis Endocrine/Metabolic History: Reports: Diabetes, Type II, Obesity/BMI 30+ - Infectious Disease History Infectious Disease History: Reports: Chicken Pox, Measles, Mumps - Past Surgical History HEENT Surgical History: Reports: Oral Surgery, Tonsillectomy Cardiovascular Surgical History: Reports: AICD, Coronary Artery Bypass Musculoskeletal Surgical History: Reports: Arthroscopic Knee, Shoulder Surgery Other Musculoskeletal Surgeries/Procedures:: R) rotator cuff repair Social & Family History - Family History Family Medical History: No Pertinent Family History - Tobacco Use Tobacco Use Status *Q: Never Tobacco User - Caffeine Use Caffeine Use: Reports: None Other Caffeine Use: rarely - Recreational Drug Use Recreational Drug Use: No - Living Situation & Occupation Living situation: Reports: , with Spouse Occupation: Retired ED ROS GENERAL - Review of Systems Review Of Systems: See Below Free Text/Narrative/Comment: Constitutional - no fever; generalized weakness Eyes - no eye pain; no visual disturbance ENT - no rhinorrhea; no congestion; no epistaxis Cardiovascular - chest pain; syncope Respiratory - shortness of breath, unchanged from chronic; no cough Gastrointestinal - abdominal distention; nausea; no vomiting; no diarrhea Genitourinary - no dysuria; urinary incontinence Musculoskeletal - no neck pain; no back pain; right knee pain Neurological - no headache; no speech disturbance; no weakness Skin - no laceration ED EXAM, GENERAL - Physical Exam Exam: See Below Free Text/Narrative:: Constitutional - awake; alert; mild distress due to pain; lying quietly in supine position with eyes closed; mild ketone odor present Head - no facial swelling or weakness Eyes - extra ocular motion intact; conjunctiva normal; pupils equal and reactive to light ENT - no nasal deformity; no epistaxis; normal phonation; mucus membranes dry; Neck - no swelling Respiratory - normal respiratory effort; no crackles or wheezing; no stridor Cardiovascular - regular rhythm; tachycardic; S1; S2; grade 1/6 systolic murmur GI/Abdomen - normal bowel sounds; soft; mild distention; no tenderness/rebound/guarding; no mass Musculoskeletal - grossly intact; mild to moderate edema both feet and ankles; mild, diffuse swelling throughout right knee with effusion; no gross deformity Skin - warm; dry Neurologic - speech intact but weak/quiet; generalized weakness, unable to hold onto bedrails in upright seated position Psychiatric - blunted mood and affect; memory limited; attention normal #1 Interpretation EKG Date: 11/12/20 Time: 00:51 Rhythm: Other (Undetermined rhythm, ventricular paced complexes, PVCs) Rate (Beats/Min): 118 [place]: LAD-Left [place] Deviation QRS: Wide ST-T: Other (Nonspecific ST-T wave abnormality without Sgarbossa criteria) Comparison: Change From Previous EKG (When compared with 03/24/2020, overall morphology is similar, tachycardia is now present) Course - Vital Signs Text/Narrative:: . Considered etiologies included: Weakness, dehydration, metabolic derangement, chest pain, ACS, knee pain, fracture, strain, contusion; urinary retention, abdominal distention, nausea, ileus Symptoms and examination were discussed Empiric treatment was provided with sublingual nitroglycerin for chest pain Morphine was given for knee pain Ondansetron was given for nausea Investigations were initiated At reevaluation he appeared more comfortable, lying semirecumbent with eyes open, holding hands with He reported resolution of chest pain symptoms In consideration of his acute, progressive functional impairment, he was advised that discharge home was unlikely In further consideration of history as provided by his regarding syncope w ith incontinence, they were further advised that transfer might be necessary Review of records showed cardiology outpatient encounter 10/16/2020, which summarized cardiac history: 5 vessel CABG 12/2002 Catheterization 06/2018 showed: -occluded paimiut LAD, circumflex -Patent graft to 2 OM branches with approximately 80% stenosis to lower limb -All other grafts occluded -RCA 70% ostial stenosis, diffuse disease in RPDA, RPL Chronic systolic CHF Ischemic cardiomyopathy, LVEF 30-35% Biventricular ICD 12/2019 AICD interrogation confirming episode of VT/VF 03/24/2020, terminated with shock (presented with chest pressure, shortness of breath, syncope, incontinence) Results were reviewed and discussed further with patient and They were agreeable with transfer to [place] for further care Case was discussed with hospitalist at [facility], who was agreeable to transfer Patient was accepted for arrival to ED (Dr. Ramsay) pending bed assignment Arrangements were initiated for ambulance transport Patient received additional analgesic treatment with morphine prior to ED departure Last Recorded V/S: Last Vital Signs Temp 36.8 C 11/12/20 03:34 Pulse 118 H 11/12/20 00:51 Resp 24 H 11/12/20 00:51 BP 136/78 11/12/20 00:51 Pulse Ox 90 L 11/12/20 00:51 - Orders/Labs/Meds Labs: Laboratory Tests 11/12/20 11/12/20 11/12/20 Range/Units 01:29 01:29 01:29 WBC 17.54 H (4.23-9.07) K/mm3 RBC 4.55 L (4.63-6.08) M/mm3 Hgb 13.2 L D (13.7-17.5) gm/dl Hct 39.9 L (40.1-51.0) % MCV 87.7 (79.0-92.2) fl MCH 29.0 (25.7-32.2) pg MCHC 33.1 (32.2-35.5) g/dl RDW Std Deviation 55.6 H (35.1-43.9) fL Plt Count 106 L (163-337) K/mm3 MPV TNP Neut % (Auto) 83.8 H (34.0-67.9) % Lymph % (Auto) 5.9 L (21.8-53.1) % Miner % (Auto) 9.8 (5.3-12.2) % Eos % (Auto) 0 L (0.8-7.0) Baso % (Auto) 0.1 (0.1-1.2) % Neut # (Auto) 14.71 H (1.78-5.38) K/mm3 Lymph # (Auto) 1.03 L (1.32-3.57) K/mm3 Miner # (Auto) 1.72 H (0.30-0.82) K/mm3 Eos # (Auto) 0.00 L (0.04-0.54) K/mm3 Baso # (Auto) 0.01 (0.01-0.08) K/mm3 Manual Slide Review Abnormal smear PT 12.3 H (9.7-12.0) SECONDS INR 1.15 APTT 25.6 (21.7-31.4) SECONDS Sodium 138 (136-145) mEq/L Potassium 4.3 (3.5-5.1) mEq/L Chloride 100 (98-107) mEq/L Carbon Dioxide 21 (21-32) mEq/L Anion Gap 21.3 H (5-15) BUN 30 H (7-18) mg/dL Creatinine 1.6 H (0.7-1.3) mg/dL Est Cr Clr Drug Dosing 45.67 mL/min Estimated GFR (MDRD) 42 (>60) mL/min BUN/Creatinine Ratio 18.8 H (14-18) Glucose 220 H (83-115) mg/dL Calcium 9.7 (8.5-10.1) mg/dL Magnesium 2.0 (1.8-2.4) mg/dl Total Bilirubin 1.2 H (0.2-1.0) mg/dL AST 29 (15-37) U/L ALT 16 (16-63) U/L Alkaline Phosphatase 101 (46-116) U/L Troponin I 0.473 H* (0.00-0.056) ng/mL NT-Pro-B Natriuret Pep (0-450) pg/mL Total Protein 7.9 (6.4-8.2) g/dl Albumin 2.9 L (3.4-5.0) g/dl Globulin 5.0 gm/dL Albumin/Globulin Ratio 0.6 L (1-2) Urine Color (Yellow) Urine Appearance (Clear) Urine pH (5.0-8.0) Ur Specific [place] (1.005-1.030) Urine Protein (Negative) Urine Glucose (UA) (Negative) Urine Ketones (Negative) Urine Occult Blood (Negative) Urine Nitrite (Negative) Urine Bilirubin (Negative) Urine Urobilinogen (0.2-1.0) Ur Leukocyte Esterase (Negative) Urine RBC (0-5) /hpf Urine WBC (0-5) /hpf Ur Squamous Epith Cells (0-5) /hpf Amorphous Sediment (NOT SEEN) /hpf Urine Bacteria (FEW) /hpf Fine Granular Casts (0-5) /lpf Urine Mucus (FEW) /hpf SARS-CoV-2 RNA ([place]) (NEGATIVE) 11/12/20 11/12/20 11/12/20 Range/Units 01:29 01:34 03:29 WBC (4.23-9.07) K/mm3 RBC (4.63-6.08) M/mm3 Hgb (13.7-17.5) gm/dl Hct (40.1-51.0) % MCV (79.0-92.2) fl MCH (25.7-32.2) pg MCHC (32.2-35.5) g/dl RDW Std Deviation (35.1-43.9) fL Plt Count (163-337) K/mm3 MPV Neut % (Auto) (34.0-67.9) % Lymph % (Auto) (21.8-53.1) % [place] % (Auto) (5.3-12.2) % Eos % (Auto) (0.8-7.0) Baso % (Auto) (0.1-1.2) % Neut # (Auto) (1.78-5.38) K/mm3 Lymph # (Auto) (1.32-3.57) K/mm3 Miner # (Auto) (0.30-0.82) K/mm3 Eos # (Auto) (0.04-0.54) K/mm3 Baso # (Auto) (0.01-0.08) K/mm3 Manual Slide Review PT (9.7-12.0) SECONDS INR APTT (21.7-31.4) SECONDS Sodium (136-145) mEq/L Potassium (3.5-5.1) mEq/L Chloride (98-107) mEq/L Carbon Dioxide (21-32) mEq/L Anion Gap (5-15) BUN (7-18) mg/dL Creatinine (0.7-1.3) mg/dL Est Cr Clr Drug Dosing mL/min Estimated GFR (MDRD) (>60) mL/min BUN/Creatinine Ratio (14-18) Glucose (83-115) mg/dL Calcium (8.5-10.1) mg/dL Magnesium (1.8-2.4) mg/dl Total Bilirubin (0.2-1.0) mg/dL AST (15-37) U/L ALT (16-63) U/L Alkaline Phosphatase (46-116) U/L Troponin I (0.00-0.056) ng/mL NT-Pro-B Natriuret Pep 2972 H (0-450) pg/mL Total Protein (6.4-8.2) g/dl Albumin (3.4-5.0) g/dl Globulin gm/dL Albumin/Globulin Ratio (1-2) Urine Color Dark yellow (Yellow) Urine Appearance Cloudy H (Clear) Urine pH 6.0 (5.0-8.0) Ur Specific [place] 1.025 (1.005-1.030) Urine Protein 3+ H (Negative) Urine Glucose (UA) 3+ H (Negative) Urine Ketones 1+ H (Negative) Urine Occult Blood 2+ H (Negative) Urine Nitrite Negative (Negative) Urine Bilirubin 1+ H (Negative) Urine Urobilinogen 4.0 H (0.2-1.0) Ur Leukocyte Esterase Negative (Negative) Urine RBC 5-10 H (0-5) /hpf Urine WBC 0-5 (0-5) /hpf Ur Squamous Epith Cells 0-5 (0-5) /hpf Amorphous Sediment Many H (NOT SEEN) /hpf Urine Bacteria Moderate H (FEW) /hpf Fine Granular Casts 5-10 H (0-5) /lpf Urine Mucus Few (FEW) /hpf SARS-CoV-2 RNA ([place]) Negative (NEGATIVE) Meds: Medications Discontinued Medications Generic Name Dose Route Start Last Admin Trade Name Freq PRN Reason Stop Dose Admin Ondansetron HCl 4 mg/ Sodium 52 mls @ 100 mls/hr 11/12/20 01:34 Chloride IV 11/12/20 02:06 ONETIME ONE Lactated Ringer's 500 mls @ 750 mls/hr 11/12/20 01:47 11/12/20 02:04 Ringers, Lactated IV 11/12/20 02:26 750 mls/hr .BOLUS ONE Administration Lactated Ringer's 1,000 mls @ 200 mls/hr 11/12/20 02:00 Ringers, Lactated IV ASDIRECTED CAROL Morphine Sulfate 2 mg 11/12/20 01:30 11/12/20 01:49 Morphine 2 Mg/Ml Syringe IVPUSH 11/12/20 01:31 2 mg ONETIME ONE Administration Morphine Sulfate 4 mg 11/12/20 04:04 11/12/20 04:19 Morphine 4 Mg/Ml Syringe IVPUSH 11/12/20 04:05 4 mg ONETIME ONE Administration Nitroglycerin 0.4 mg 11/12/20 01:22 Nitroglycerin 0.4 Mg Tab.Sl SL 11/12/20 01:23 ONETIME ONE Ondansetron HCl 4 mg 11/12/20 01:38 11/12/20 01:47 Ondansetron 4 Mg/2 Ml Sdv IVPUSH 11/12/20 01:39 4 mg ONETIME ONE Administration Sodium Chloride 10 ml 11/12/20 01:14 11/12/20 02:04 Sodium Chloride 0.9% 10 Ml Syringe FLUSH 10 ml ASDIRECTED PRN Administration Keep Vein Open - Radiology Interpretation Free Text/Narrative:: XR chest, AP portable, preliminary Departure - Departure Time of Disposition: 06:50 Disposition: DC/Tfer to [facility] 02 Clinical Impression: Generalized weakness, Ambulatory dysfunction, Elevated troponin level, Ventricular ectopy, Renal insufficiency Syncope Qualifiers: Syncope type: unspecified Qualified Code(s): R55 - Syncope and collapse Pain in right knee Qualifiers: Chronicity: acute Qualified Code(s): M25.561 - Pain in right knee - Discharge Information Referrals: Jay Sexton MD [Primary Care Provider] - Forms: Interfacility Transfer [facility] Sepsis Event Note (ED) - Evaluation Sepsis Screening Result: No Definite Risk
[2020-11-12] MEDS ORDERED: Morphine 2 MG/ML SYRINGE IVPUSH ONE (01:30)
[2020-11-12] MEDS ORDERED: Ondansetron 4 MG in Sodium Chloride 0.9% 50 ML IV ONE (01:34)
[2020-11-12] MEDS ORDERED: Ondansetron 4 MG/2 ML SDV IVPUSH ONE (01:38)
[2020-11-12] MEDS ORDERED: Lactated Ringers 500 ML IV ONE (01:47)
[2020-11-12] MEDS ORDERED: Lactated Ringers 1,000 ML IV SCH (02:00)
[2020-11-12] MEDS ORDERED: Morphine 4 MG/ML Syringe IVPUSH ONE (04:04)
--- NOTE | 2020-11-13 07:12 | CR ---
Chest: Portable view of the chest was obtained. Comparison: Prior chest x-ray of 03/24/20. Prior sternotomy is noted. AICD is present. Pulmonary vessels may be slightly congested. Lungs otherwise are clear. No acute osseous abnormality is appreciated. Impression: 1. Findings are suspicious for minimal CHF. 2. Other stable findings as noted above. Diagnostic code #3
--- NOTE | 2020-11-13 07:27 | CR ---
Pelvis and right hip: AP view of the pelvis was obtained as well as AP and crosstable lateral views of the right hip. Moderate joint space narrowing is seen within both hips, slightly worse on the right side. Bony structures are osteopenic. Vascular calcification is seen. No acute fracture or is dislocation is appreciated. Impression: 1. Degenerative change within both hips, as well as osteopenia and vascular calcification. 2. No acute abnormality is appreciated. Diagnostic code #2
--- NOTE | 2020-11-13 07:28 | CR ---
Right knee: AP and lateral views of the right knee were obtained. Comparison: No prior knee study is available. Joint effusion is seen. Mild joint space narrowing is noted laterally. Slight osteophytes are noted medially. Bony density is noted off the inferior patella which appears old. Small osteophytes off the patella are seen. Larger spurring is noted at the attachment of the quadriceps tendon and patellar ligament. Diffuse vascular calcification is noted. Impression: 1. Degenerative change and joint effusion. 2. Vascular calcification. Diagnostic code #3
== END 2020-11-12 06:50 ==
LOC: JD.ED 00:44
DX: M25.561 Pain in right knee (principal); R53.1 Weakness; R55 Syncope and collapse; R79.89 Other specified abnormal findings of blood chemistry; I49.3 Ventricular premature depolarization; N28.9 Disorder of kidney and ureter, unspecified; R26.9 Unspecified abnormalities of gait and mobility; I25.10 Atherosclerotic heart disease of native coronary artery without angina pectoris; E78.00 Pure hypercholesterolemia, unspecified; I11.0 Hypertensive heart disease with heart failure; I50.9 Heart failure, unspecified; I25.2 Old myocardial infarction; M19.90 Unspecified osteoarthritis, unspecified site; E11.9 Type 2 diabetes mellitus without complications; E66.9 Obesity, unspecified; Z68.35 Body mass index [BMI] 35.0-35.9, adult; Z20.822 Contact with and (suspected) exposure to COVID-19; Z88.0 Allergy status to penicillin; Z79.82 Long term (current) use of aspirin; Z79.02 Long term (current) use of antithrombotics/antiplatelets
CPT/HCPCS: 36415; 51702; 71045; 73502; 73560; 80053; 81001; 83735; 83880; 84484; 85025; 85610; 85730; 87086; 93005; 96374; 96375; 96376; 99285; A9270; J2270; J2405; J7120; U0002